=== PATIENT | male | born 1990 | race Hispanic/Latino ===

== ENCOUNTER 2018-12-06 13:44 | Emergency (ER) | payer SELFPAY ==
[2018-12-06] MEDS ORDERED: ONDANSETRON HCL 4 MG/2 ML VIAL ONE (14:27)
[2018-12-06] MEDS ORDERED: KETOROLAC TROMETHAMINE 30MG/ML ONE (14:27)
[2018-12-06 14:34] LABS: BASOPHILS % (AUTO) 0.7 % (0.0-5.0); EOSINOPHILS % (AUTO) 0.3 % (0.0-8.0); HEMATOCRIT 48.9 % (42-54); LYMPHOCYTES % (AUTO) 11.8 % (21.0-51.0); MEAN CORPUSCULAR HEMOGLOBIN 34.2 pg (27.0-33.0); MEAN CORPUSCULAR VOLUME 97.7 fL (79-99); MONOCYTES % (AUTO) 8.1 % (3.0-13.0); NEUTROPHILS % (AUTO) 79.1 % (40.0-77.0); NUCLEATED RED BLOOD CELLS 0.1 % (0.0-0.19); PLATELET COUNT (AUTO) 269 K/uL (130-400); RED CELL DISTRIBUTION WIDTH 13.8 % (11.0-15.5); WHITE BLOOD COUNT (AUTO) 5.1 K/uL (4.8-10.8)
[2018-12-06 14:44] LABS: CREATININE 0.9 mg/dL (0.5-1.5); POTASSIUM 3.8 mmol/L (3.5-5.1)
[2018-12-06 14:48] LABS: ALBUMIN 4.3 g/dL (3.5-5.0); BILIRUBIN,DIRECT 0.4 mg/dL (0.0-0.3); BILIRUBIN,TOTAL 1.8 mg/dL (0.2-1.0); TOTAL PROTEIN, SERUM 8.3 g/dL (6.0-8.3)
[2018-12-06 14:55] LABS: RAPID GROUP A STREP NEGATIVE (NEGATIVE)
[2018-12-06] MEDS ORDERED: IOHEXOL-350 75 ML VIAL IV ONE (15:31)
== END 2018-12-06 16:13 | disposition home or self-care (01) ==
LOC: EDH 13:44
DX: R10.31 Right lower quadrant pain (principal); K76.0 Fatty (change of) liver, not elsewhere classified; R94.5 Abnormal results of liver function studies; Z72.0 Tobacco use
CPT/HCPCS: 36415; 74177; 80048; 80076; 83690; 85025; 87804 ×2; 87880; 96374; 96375; 99284; J1885; J2405; Q9967

== ENCOUNTER 2019-05-28 14:09 | Emergency (ER) | payer SELFPAY ==
[2019-05-28] MEDS ORDERED: IBUPROFEN 600 MG TABLET ONE (14:22)
== END 2019-05-28 15:33 | disposition home or self-care (01) ==
LOC: EDH 14:09
DX: S60.221A Contusion of right hand, initial encounter (principal); Z72.0 Tobacco use; W23.1XXA Caught, crushed, jammed, or pinched between stationary objects, initial encounter; Y93.89 Activity, other specified; Y92.89 Other specified places as the place of occurrence of the external cause; Y99.8 Other external cause status
CPT/HCPCS: 73130

== ENCOUNTER 2020-09-07 09:12 | Emergency (ER) | payer OTHER ==
[2020-09-07] MEDS ORDERED: FAMOTIDINE 20MG TAB 20 MG TAB ONE (10:52)
[2020-09-07] MEDS ORDERED: ONDANSETRON 4 MG TABLET ONE (10:52)
[2020-09-07] MEDS ORDERED: LORAZEPAM 1 MG TABLET ONE (10:52)
== END 2020-09-07 13:24 ==
LOC: EDH 09:12 → EEVIPCON 09:12 → EDH 13:24
DX: F10.239 Alcohol dependence with withdrawal, unspecified (principal); R11.2 Nausea with vomiting, unspecified
CPT/HCPCS: 99284; Q0162

== ENCOUNTER 2021-09-04 10:40 | Emergency (ER) | payer SELFPAY ==
[~2021-09-04] VITALS: Ht 170.2 cm; Wt 81.6 kg
[2021-09-04] MEDS ORDERED: ONDANSETRON 4MG INJ ONE (10:54)
[2021-09-04] MEDS ORDERED: KETOROLAC 30MG VIAL (30MG/ML) ONE (10:54)
[2021-09-04] MEDS ORDERED: MORPHINE 4 MG SYG ONE (10:55)
[2021-09-04] MEDS ORDERED: ONDANSETRON 4MG INJ IVP ONE (11:00)
[2021-09-04] MEDS ORDERED: MORPHINE 4 MG SYG IVP ONE (11:00)
[2021-09-04] MEDS ORDERED: KETOROLAC 30MG VIAL (30MG/ML) IV ONE (11:00)
[2021-09-04 11:01] LABS: BASOPHILS % (AUTO) 0.8 % (0.0-5.0); EOSINOPHILS % (AUTO) 1.8 % (0.0-8.0); HEMATOCRIT 36.7 % (42-54); LYMPHOCYTES % (AUTO) 10.6 % (21.0-51.0); MEAN CORPUSCULAR HEMOGLOBIN 35.9 pg (27.0-33.0); MEAN CORPUSCULAR HGB CONC 34.9 g/dL (32.0-36.0); MEAN CORPUSCULAR VOLUME 102.8 fL (79-99); MONOCYTES % (AUTO) 11.3 % (3.0-13.0); NEUTROPHILS % (AUTO) 75.1 % (40.0-77.0); PLATELET COUNT (AUTO) 299 K/uL (130-400); RED BLOOD CELL COUNT(AUTO) 3.57 MIL/uL (4.50-6.20); RED CELL DISTRIBUTION WIDTH 12.4 % (11.0-15.5); WHITE BLOOD COUNT (AUTO) 8.4 K/uL (4.8-10.8)
[2021-09-04] MEDS ORDERED: IOHEXOL 350 MG/ML 100ML INFUS..BTL IV ONE (11:10)
[2021-09-04 11:12] LABS: CREATININE 1.1 mg/dL (0.5-1.5); POTASSIUM 4.2 mmol/L (3.5-5.1)
[2021-09-04 11:16] LABS: ALBUMIN 4.2 g/dL (3.5-5.0); TOTAL PROTEIN, SERUM 7.9 g/dL (6.0-8.3)
[2021-09-04] MEDS ORDERED: IBUP-2070 PO (12:10)
[2021-09-04] MEDS ORDERED: ACET1TAB25 PO (12:10)
[2021-09-04 12:19] VITALS: BP 132/88
== END 2021-09-04 12:18 | disposition home or self-care (01) ==
LOC: EDH 10:40
DX: S30.0XXA Contusion of lower back and pelvis, initial encounter (principal); Z79.899 Other long term (current) drug therapy; Z79.1 Long term (current) use of non-steroidal anti-inflammatories (NSAID); X58.XXXA Exposure to other specified factors, initial encounter; Y93.89 Activity, other specified; Y92.89 Other specified places as the place of occurrence of the external cause; Y99.8 Other external cause status
CPT/HCPCS: 36415; 70450; 71260; 72125; 74177; 80053; 85025; 93005; 96374; 96375; 99285; J1885; J2270; J2405; Q9967

== ENCOUNTER 2021-09-09 04:00 | Emergency (ER) | payer SELFPAY ==
[~2021-09-09] VITALS: Ht 170.2 cm; Wt 81.6 kg
[~2021-09-09 04:00] MED LIST: ACET1TAB25 PO; IBUP-2070 PO
[2021-09-09] MEDS ORDERED: HYDROCODONE/ACETAMINOPHEN 5/325 MG TAB PO ONE (05:00)
[2021-09-09] MEDS ORDERED: NEOMY SULF/BACITRA/POLYMYXIN B 1 EACH PACKET TP ONE (05:00)
[2021-09-09] MEDS ORDERED: KETOROLAC 30MG VIAL (30MG/ML) IV ONE (05:00)
[2021-09-09] MEDS ORDERED: ORPHENADRINE CITRATE 30 MG/ML ML IV ONE (05:00)
[2021-09-09] MEDS ORDERED: CEFTRIAXONE 1G VIAL IVP ONE (05:00)
[2021-09-09] MEDS ORDERED: CEPH500B PO (05:56)
[2021-09-09] MEDS ORDERED: CYCL-309 PO (05:56)
[2021-09-09] MEDS ORDERED: ACET1TAB25 PO (05:56)
[2021-09-09] MEDS ORDERED: MELO7.5T12 PO (05:56)
[2021-09-09 06:07] VITALS: BP 134/86
== END 2021-09-09 06:14 | disposition home or self-care (01) ==
LOC: EDH 04:00
DX: S30.0XXA Contusion of lower back and pelvis, initial encounter (principal); S31.000A Unspecified open wound of lower back and pelvis without penetration into retroperitoneum, initial encounter; L08.9 Local infection of the skin and subcutaneous tissue, unspecified; Z79.1 Long term (current) use of non-steroidal anti-inflammatories (NSAID); X58.XXXA Exposure to other specified factors, initial encounter; Y93.89 Activity, other specified; Y92.89 Other specified places as the place of occurrence of the external cause; Y99.8 Other external cause status
CPT/HCPCS: 96374; 96375; 99284; J0696; J1885; J2360

== ENCOUNTER 2021-09-13 17:15 | Inpatient (IN) | payer SELFPAY ==
[~2021-09-13] VITALS: Ht 170.2 cm; Wt 85.4 kg
[~2021-09-13 17:15] MED LIST changes: +CEPH500B PO; +CYCL-309 PO; +MELO7.5T12 PO
[2021-09-13] MEDS ORDERED: HYDROCODONE/ACETAMINOPHEN 10/325 MG TAB PO ONE ×2 (17:30→18:00)
[2021-09-13] MEDS ORDERED: KETOROLAC 60 MG VIAL (30MG/ML) IM ONE (17:30)
[2021-09-13] MEDS ORDERED: KETOROLAC 60 MG VIAL (30MG/ML) ONE (17:37)
[2021-09-13] MEDS ORDERED: CEPHALEXIN 500 MG CAPSULE ONE (17:37)
[2021-09-13] MEDS ORDERED: HYDROCODONE/ACETAMINOPHEN 10/325 MG TAB ONE (17:38)
[2021-09-13] MEDS ORDERED: CYCLOBENZAPRINE HCL 10 MG TABLET ONE (17:38)
[2021-09-13] MEDS ORDERED: CEPHALEXIN 500 MG CAPSULE PO ONE (18:00)
[2021-09-13 18:22] LABS: BASOPHILS % (AUTO) 0.9 % (0.0-5.0); EOSINOPHILS % (AUTO) 1.5 % (0.0-8.0); HEMATOCRIT 33.5 % (42-54); LYMPHOCYTES % (AUTO) 20.1 % (21.0-51.0); MEAN CORPUSCULAR HEMOGLOBIN 36.2 pg (27.0-33.0); MEAN CORPUSCULAR HGB CONC 34.3 g/dL (32.0-36.0); MEAN CORPUSCULAR VOLUME 105.3 fL (79-99); MONOCYTES % (AUTO) 12.3 % (3.0-13.0); NEUTROPHILS % (AUTO) 64.8 % (40.0-77.0); PLATELET COUNT (AUTO) 340 K/uL (130-400); RED BLOOD CELL COUNT(AUTO) 3.18 MIL/uL (4.50-6.20); RED CELL DISTRIBUTION WIDTH 13.5 % (11.0-15.5); WHITE BLOOD COUNT (AUTO) 5.3 K/uL (4.8-10.8)
[2021-09-13] MEDS: MORPHINE 4 MG SYG IV ONE ×2 (18:24→18:41)
[2021-09-13] MEDS: ONDANSETRON 4MG INJ IVP ONE ×2 (18:24→18:42)
[2021-09-13] MEDS ORDERED: CYCLOBENZAPRINE HCL 10 MG TABLET PO ONE (18:30)
[2021-09-13 18:36] LABS: CREATININE 0.9 mg/dL (0.5-1.5); POTASSIUM 4.2 mmol/L (3.5-5.1)
[2021-09-13 18:40] LABS: ALBUMIN 3.8 g/dL (3.5-5.0); BILIRUBIN,TOTAL 0.8 mg/dL (0.2-1.0); CRP QUANTITATIVE 23.1 mg/L (0.00-9.0)
[2021-09-13 20:11] LABS: APPEARANCE,URINE Clear (CLEAR); BILIRUBIN,URINE Negative (NEGATIVE); COLOR,URINE Yellow (YELLOW); GLUCOSE, URINE (UA) Negative (NEGATIVE); KETONES,URINE Negative (NEGATIVE); LEUKOCYTE ESTERASE ,URINE Negative (NEGATIVE); NITRATE,URINE Negative (NEGATIVE); OCCULT BLOOD,URINE Negative (NEGATIVE); PROTEIN,URINE Negative (NEGATIVE); UROBILINOGEN,URINE 0.2 mg/dL (0.2-1.0)
[2021-09-13] MEDS: CLINDAMYCIN IVPB 600MG/50ML 50 ML IV SCH (20:25)
[2021-09-13] MEDS ORDERED: ONDANSETRON 4MG INJ IVP ONE (20:30)
[2021-09-13] MEDS ORDERED: MORPHINE 4 MG SYG IV ONE (20:30)
[2021-09-13] MEDS ORDERED: ONDANSETRON 4MG INJ IV PRN (21:00)
[2021-09-13] MEDS ORDERED: HYDRALAZINE 20MG/ML VIAL IV PRN (21:00)
[2021-09-13] MEDS ORDERED: PHARMACY COMMUNICATION MISC PRN (22:00)
[2021-09-13] MEDS: FAMOTIDINE 20MG VIAL IV SCH (22:12)
[2021-09-13] MEDS: LACTATED RINGERS 1000ML 1,000 ML IV SCH (22:12)
[2021-09-13 23:50] VITALS: BP 116/73
[2021-09-14] MEDS: MORPHINE 4 MG SYG IV PRN ×2 (00:23→06:31)
[2021-09-14] MEDS: LORAZEPAM 2 MG/ML 1 ML VIAL IVP PRN ×2 (02:08→08:17)
[2021-09-14 04:00] VITALS: BP 114/68
[2021-09-14 04:47] LABS: BASOPHILS % (AUTO) 0.8 % (0.0-5.0); EOSINOPHILS % (AUTO) 4.1 % (0.0-8.0); HEMATOCRIT 30.5 % (42-54); LYMPHOCYTES % (AUTO) 27.2 % (21.0-51.0); MEAN CORPUSCULAR HEMOGLOBIN 36.1 pg (27.0-33.0); MEAN CORPUSCULAR HGB CONC 34.1 g/dL (32.0-36.0); MEAN CORPUSCULAR VOLUME 105.9 fL (79-99); NEUTROPHILS % (AUTO) 52.6 % (40.0-77.0); PLATELET COUNT (AUTO) 241 K/uL (130-400); RED BLOOD CELL COUNT(AUTO) 2.88 MIL/uL (4.50-6.20); RED CELL DISTRIBUTION WIDTH 13.6 % (11.0-15.5); WHITE BLOOD COUNT (AUTO) 3.9 K/uL (4.8-10.8)
[2021-09-14 04:58] LABS: INR 0.97 (0.85-1.15); PROTHROMBIN TIME 10.6 SEC (9.6-11.6)
[2021-09-14 04:59] LABS: PARTIAL THROMBOPLASTIN TIME 27.6 SEC (26.3-35.5)
[2021-09-14 05:04] LABS: CREATININE 0.9 mg/dL (0.5-1.5); MAGNESIUM 2.1 mg/dL (1.80-2.40); PHOSPHORUS 4.3 mg/dL (2.5-4.9); POTASSIUM 3.8 mmol/L (3.5-5.1)
[2021-09-14] MEDS: CLINDAMYCIN IVPB 600MG/50ML 50 ML IV SCH (05:14)
[2021-09-14] MEDS: LACTATED RINGERS 1000ML 1,000 ML IV SCH (07:07)
[2021-09-14 08:00] VITALS: BP 112/46
[2021-09-14] MEDS: KETOROLAC 15MG/ML VIAL (15MG/ML) IV PRN ×3 (08:13→23:17)
[2021-09-14] MEDS: MORPHINE 2 MG SYG IV PRN ×3 (09:54→18:44)
[2021-09-14] MEDS: FAMOTIDINE 20MG VIAL IV SCH ×3 (10:02→20:56)
[2021-09-14 11:24] LABS: AMPHET/METH SCREEN,URINE NEGATIVE (NEGATIVE); BARBITURATE SCREEN, URINE NEGATIVE (NEGATIVE); BENZODIAZEPINES SCREEN,URINE NEGATIVE (NEGATIVE); CANNABINOID SCREEN,URINE NEGATIVE (NEGATIVE); COCAINE SCREEN,URINE NEGATIVE (NEGATIVE); OPIATE SCREEN,URINE NEGATIVE (NEGATIVE); PHENCYCLIDINE SCREEN,URINE NEGATIVE (NEGATIVE)
[2021-09-14 12:00] VITALS: BP 110/53
[2021-09-14] MEDS ORDERED: PHARMACY COMMUNICATION MISC PRN (12:30)
[2021-09-14] MEDS ORDERED: THIAMINE HCL 100 MG, FOLIC ACID 1 MG, M.V.I. IV [ADULT] 10 ML in 0.9%NACL 1000ML 1,000 ML IV SCH (12:30)
[2021-09-14] MEDS: CYCLOBENZAPRINE HCL 10 MG TABLET PO SCH ×2 (13:05→20:54)
[2021-09-14] MEDS: CHLORDIAZEPOXIDE HCL 25 MG CAP PO PRN ×4 (13:27→20:54)
[2021-09-14] MEDS ORDERED: LORAZEPAM 2 MG/ML 1 ML VIAL IVP PRN (14:00)
[2021-09-14 16:00] VITALS: BP 113/51
[2021-09-14 20:13] VITALS: BP 123/60
[2021-09-14 23:44] VITALS: BP 142/62
[2021-09-15] VITALS (7 sets, daily range): BP systolic 112–139; BP diastolic 67–95
[2021-09-15] MEDS: MORPHINE 2 MG SYG IV PRN ×4 (02:13→20:32)
[2021-09-15] MEDS: KETOROLAC 15MG/ML VIAL (15MG/ML) IV PRN ×3 (05:27→23:06)
[2021-09-15 05:28] LABS: BASOPHILS % (AUTO) 0.6 % (0.0-5.0); EOSINOPHILS % (AUTO) 3.8 % (0.0-8.0); HEMATOCRIT 33.6 % (42-54); LYMPHOCYTES % (AUTO) 14.4 % (21.0-51.0); MEAN CORPUSCULAR HEMOGLOBIN 35.8 pg (27.0-33.0); MEAN CORPUSCULAR HGB CONC 35.1 g/dL (32.0-36.0); MEAN CORPUSCULAR VOLUME 101.8 fL (79-99); MONOCYTES % (AUTO) 13.5 % (3.0-13.0); NEUTROPHILS % (AUTO) 67.1 % (40.0-77.0); PLATELET COUNT (AUTO) 283 K/uL (130-400); RED CELL DISTRIBUTION WIDTH 13.5 % (11.0-15.5); WHITE BLOOD COUNT (AUTO) 4.7 K/uL (4.8-10.8)
[2021-09-15 05:46] LABS: ALBUMIN 3.3 g/dL (3.5-5.0); BILIRUBIN,TOTAL 1.1 mg/dL (0.2-1.0); CREATININE 0.9 mg/dL (0.5-1.5); TOTAL PROTEIN, SERUM 7.2 g/dL (6.0-8.3)
[2021-09-15 07:16] LABS: HEPATITIS A ANTIBODY IGM Negative (Negative); HEPATITIS B CORE IGM Negative (Negative); HEPATITIS Bs ANTIGEN SCREEN P Negative (Negative)
[2021-09-15] MEDS: THIAMINE HCL 100 MG TABLET PO SCH (09:21)
[2021-09-15] MEDS: FOLIC ACID 1 MG TABLET PO SCH (09:21)
[2021-09-15] MEDS: CYCLOBENZAPRINE HCL 10 MG TABLET PO SCH ×3 (09:21→19:28)
[2021-09-15] MEDS ORDERED: 0.9%NACL 10ML VIAL ONE (15:45)
[2021-09-15] MEDS: CHLORDIAZEPOXIDE HCL 25 MG CAP PO PRN (19:28)
[2021-09-15] MEDS: FAMOTIDINE 20MG VIAL IV SCH (19:28)
[2021-09-16] MEDS: MORPHINE 2 MG SYG IV PRN ×3 (02:26→17:12)
[2021-09-16 03:31] VITALS: BP 101/59
[2021-09-16] MEDS: KETOROLAC 15MG/ML VIAL (15MG/ML) IV PRN ×2 (07:14→22:04)
[2021-09-16 08:00] VITALS: BP 126/88
[2021-09-16] MEDS ORDERED: FOLI0.4T6 PO (08:49)
[2021-09-16] MEDS ORDERED: THIA100T75 PO (08:49)
[2021-09-16] MEDS: FOLIC ACID 1 MG TABLET PO SCH (10:49)
[2021-09-16] MEDS: FAMOTIDINE 20MG VIAL IV SCH ×2 (10:49→21:15)
[2021-09-16] MEDS: CYCLOBENZAPRINE HCL 10 MG TABLET PO SCH ×3 (10:49→21:15)
[2021-09-16] MEDS: THIAMINE HCL 100 MG TABLET PO SCH (10:49)
[2021-09-16 12:05] VITALS: BP 125/80
[2021-09-16 16:00] VITALS: BP 95/51
[2021-09-16 21:23] VITALS: BP 117/73
[2021-09-16 23:48] VITALS: BP 108/65
[2021-09-17 03:23] VITALS: BP 111/70
[2021-09-17] MEDS: KETOROLAC 15MG/ML VIAL (15MG/ML) IV PRN (04:42)
[2021-09-17 08:00] VITALS: BP 115/77
[2021-09-17] MEDS: CYCLOBENZAPRINE HCL 10 MG TABLET PO SCH (10:12)
== END 2021-09-17 12:00 | disposition home or self-care (01) | DRG 605 ==
LOC: EDH 17:15 → EDHIP 17:16 → 3BH 23:29
PROVIDERS: ADMIT Internal Medicine; ATTEND Internal Medicine
DX: S30.0XXA Contusion of lower back and pelvis, initial encounter (principal); F10.239 Alcohol dependence with withdrawal, unspecified; M51.27 Other intervertebral disc displacement, lumbosacral region; F10.20 Alcohol dependence, uncomplicated; Z20.822 Contact with and (suspected) exposure to COVID-19; K74.60 Unspecified cirrhosis of liver; F17.210 Nicotine dependence, cigarettes, uncomplicated; K76.0 Fatty (change of) liver, not elsewhere classified; V89.2XXA Person injured in unspecified motor-vehicle accident, traffic, initial encounter; Y93.89 Activity, other specified; Y99.8 Other external cause status; Y92.410 Unspecified street and highway as the place of occurrence of the external cause
CPT/HCPCS: 36415; 72131; 73521; 74176; 76705; 80048; 80053; 80074; 80305; 81003; 83735; 84100; 85025; 85610; 85730; 86140; 86850; 86900; 86901; 87635; 93005; G0378; J1885; J2060; J2270; J2405; J3411; J3490; J7030

== ENCOUNTER 2021-09-21 22:54 | Emergency (ER) | payer SELFPAY ==
[~2021-09-21] VITALS: Ht 170.2 cm; Wt 83.9 kg
[~2021-09-21 22:54] MED LIST changes: +FOLI0.4T6 PO; -IBUP-2070 PO; -MELO7.5T12 PO; +THIA100T75 PO
[2021-09-21] MEDS ORDERED: KETOROLAC 30MG VIAL (30MG/ML) IV ONE (23:30)
[2021-09-21 23:36] LABS: BASOPHILS % (AUTO) 1.3 % (0.0-5.0); EOSINOPHILS % (AUTO) 3.8 % (0.0-8.0); HEMATOCRIT 34.3 % (42-54); LYMPHOCYTES % (AUTO) 24.3 % (21.0-51.0); MEAN CORPUSCULAR HEMOGLOBIN 35.6 pg (27.0-33.0); MEAN CORPUSCULAR HGB CONC 34.1 g/dL (32.0-36.0); MEAN CORPUSCULAR VOLUME 104.3 fL (79-99); NEUTROPHILS % (AUTO) 53.2 % (40.0-77.0); PLATELET COUNT (AUTO) 346 K/uL (130-400); RED BLOOD CELL COUNT(AUTO) 3.29 MIL/uL (4.50-6.20); RED CELL DISTRIBUTION WIDTH 14.2 % (11.0-15.5); WHITE BLOOD COUNT (AUTO) 4.5 K/uL (4.8-10.8)
[2021-09-21 23:41] VITALS: BP 121/75
[2021-09-21 23:51] LABS: CREATININE 0.8 mg/dL (0.5-1.5); POTASSIUM 3.3 mmol/L (3.5-5.1)
[2021-09-21 23:58] LABS: ALBUMIN 3.8 g/dL (3.5-5.0); BILIRUBIN,TOTAL 0.5 mg/dL (0.2-1.0); CRP QUANTITATIVE 2.6 mg/L (0.00-9.0); TOTAL PROTEIN, SERUM 7.8 g/dL (6.0-8.3)
[2021-09-22] MEDS ORDERED: MORPHINE 4 MG SYG IV ONE
[2021-09-22] MEDS ORDERED: ONDANSETRON 4MG INJ IVP ONE
[2021-09-22] MEDS ORDERED: TRAM100T40 PO (02:25)
== END 2021-09-22 03:18 | disposition home or self-care (01) ==
LOC: EDH 22:54
DX: M79.81 Nontraumatic hematoma of soft tissue (principal); M54.50 Low back pain, unspecified; Z79.1 Long term (current) use of non-steroidal anti-inflammatories (NSAID); Z79.899 Other long term (current) drug therapy
CPT/HCPCS: 36415; 72131; 80053; 83605; 85025; 86140; 96374; 96375; 99284; J1885; J2270; J2405

== ENCOUNTER 2021-09-26 23:50 | Emergency (ER) | payer SELFPAY ==
[~2021-09-26] VITALS: Ht 170.2 cm; Wt 84.4 kg
[~2021-09-26 23:50] MED LIST changes: +TRAM100T40 PO
[2021-09-27] MEDS ORDERED: ACETAMINOPHEN 500 MG TABLET ONE (01:14)
[2021-09-27] MEDS ORDERED: NAPR-1180 PO (01:15)
[2021-09-27 01:30] VITALS: BP 129/85
[2021-09-27] MEDS ORDERED: ACETAMINOPHEN 500 MG TABLET PO ONE (01:30)
[2021-09-28] MEDS ORDERED: GABA300S PO (21:40)
== END 2021-09-27 01:41 | disposition home or self-care (01) ==
LOC: EDH 23:50
DX: S30.0XXA Contusion of lower back and pelvis, initial encounter (principal); S20.222A Contusion of left back wall of thorax, initial encounter; X58.XXXA Exposure to other specified factors, initial encounter; Y93.89 Activity, other specified; Y92.89 Other specified places as the place of occurrence of the external cause; Y99.8 Other external cause status
CPT/HCPCS: 72100

== ENCOUNTER 2021-09-28 20:32 | Emergency (ER) | payer SELFPAY ==
[~2021-09-28] VITALS: Ht 170.2 cm; Wt 82.1 kg
[~2021-09-28 20:32] MED LIST changes: +NAPR-1180 PO
[2021-09-28] MEDS ORDERED: ACETAMINOPHEN 500 MG TABLET PO ONE ×2 (21:30)
[2021-09-28] MEDS ORDERED: GABA300S PO (21:40)
[2021-09-28 21:41] VITALS: BP 149/97
== END 2021-09-28 21:54 | disposition home or self-care (01) ==
LOC: EDH 20:32
DX: S20.229A Contusion of unspecified back wall of thorax, initial encounter (principal); G62.9 Polyneuropathy, unspecified; B35.1 Tinea unguium; Z79.1 Long term (current) use of non-steroidal anti-inflammatories (NSAID); Z79.899 Other long term (current) drug therapy; X58.XXXA Exposure to other specified factors, initial encounter; Y93.89 Activity, other specified; Y92.89 Other specified places as the place of occurrence of the external cause; Y99.8 Other external cause status
CPT/HCPCS: 93926

== ENCOUNTER 2021-12-09 18:52 | Emergency (ER) | payer SELFPAY ==
[~2021-12-09] VITALS: Ht 172.7 cm; Wt 81.6 kg
[~2021-12-09 18:52] MED LIST changes: +GABA300S PO
[2021-12-09 22:03] VITALS: BP 127/80
== END 2021-12-09 22:07 | disposition home or self-care (01) ==
LOC: EDH 18:52
DX: R53.81 Other malaise (principal); F10.10 Alcohol abuse, uncomplicated; R10.13 Epigastric pain; Z79.899 Other long term (current) drug therapy; Z98.890 Other specified postprocedural states; Y90.9 Presence of alcohol in blood, level not specified

== ENCOUNTER 2023-03-16 19:58 | Emergency (ER) | payer OTHER ==
[~2023-03-16] VITALS: Ht 170.2 cm; Wt 82.1 kg
[~2023-03-16 19:58] MED LIST changes: +ACET-2079 PO; -ACET1TAB25 PO; -GABA300S PO; +GABA300S3 PO
[2023-03-16 20:01] VITALS: BP 105/69
== END 2023-03-16 21:20 | disposition left against medical advice (07) ==
LOC: EDH 19:58
DX: R10.9 Unspecified abdominal pain (principal); Z53.1 Procedure and treatment not carried out because of patient's decision for reasons of belief and group pressure
CPT/HCPCS: 99281

== ENCOUNTER 2023-05-11 13:39 | Emergency (ER) | payer BC, OTHER ==
[~2023-05-11] VITALS: Ht 170.2 cm; Wt 81.6 kg
[2023-05-11 13:42] VITALS: BP 133/84
[2023-05-11] MEDS ORDERED: IBUPROFEN 600 MG TABLET PO ONE (14:30)
[2023-05-11] MEDS ORDERED: HYDROCODONE/ACETAMINOPHEN 5/325 MG TAB PO ONE (14:30)
== END 2023-05-11 15:47 | disposition home or self-care (01) ==
LOC: EDH 13:39
DX: S93.492A Sprain of other ligament of left ankle, initial encounter (principal); Z79.899 Other long term (current) drug therapy; Z98.890 Other specified postprocedural states; V89.2XXA Person injured in unspecified motor-vehicle accident, traffic, initial encounter; Y93.I9 Activity, other involving external motion; Y92.488 Other paved roadways as the place of occurrence of the external cause; Y99.8 Other external cause status
CPT/HCPCS: 73610